=== PATIENT | female | born 1945 | race Caucasian/White ===

== ENCOUNTER → 2017-12-10 | Outpatient (REF) ==
[~2017-12-10] MED LIST: AMARYL 2MG T2 MG/TAB PO; AMARYL4 MG PO; ASPIRIN 32325 MG/TAB PO; ASPIRIN E.C. 8181 MG PO; BLOOD PRESSURE MED; CALCIUM CARBONATE; CATAPRES 0.1MG0.1 MG PO; HALLS COUGH DROPS; LEVOXYL0.05 MG PO; NO HOME MEDICATIONS; [UNRECOGNIZED DRUG - REMARK]
== END ==
LOC: ZLAB.WCH 16:07
DX: Z01.89 Encounter for other specified special examinations (principal)

== ENCOUNTER 2018-02-14 19:27 | Emergency (ER) | payer MEDICARE, BC ==
[~2018-02-14] VITALS: Ht 162.6 cm; Wt 110.9 kg
[2018-02-14 19:36] VITALS: TEMP 98.4
[2018-02-14] MEDS ORDERED: LOSARTAN/HCT TAB 50- (20:36)
[2018-02-14 22:22] LABS: BASO # 0.1 (0.0-0.2); BASO % 0.8 % (0.0-2.0); EOS # 0.3 (0.0-0.7); EOS % 2.5 % (0-4.0); GRAN # 7.9 (1.4-6.5); HEMATOCRIT 40.3 % (37.0-47.0); HEMOGLOBIN 13.8 g/dl (12.5-16.0); LYMPH # 1.4 (1.2-3.4); LYMPH % 13.4 % (20.0-51.0); MEAN CELL VOLUME 89 fl (80.0-100.0); MEAN CORPUSCULAR HEMOGLOBIN 31 pg (27.0-31.0); MEAN CORPUSCULAR HGB CONC 34 g/dl (33.0-37.0); MEAN PLATELET VOLUME 9.9 fl (7.4-10.4); MONO # 0.4 (0.1-0.6); MONO % 4.1 % (1.7-9.3); PLATELET COUNT 228 K/mm3 (130-400); RED BLOOD COUNT 4.51 M/mm3 (4.10-5.30); REDCELL DISTRIBUTION WIDTH-CV 13.5 % (11.5-14.5)
[2018-02-14 22:33] LABS: ALBUMIN 3.8 gm/dL (3.5-5.0); CALCIUM 9.4 mg/dL (8.4-10.2); CREATININE, serum 0.9 mg/dL (0.52-1.25); POTASSIUM 3.9 mmol/L (3.4-5.0); TOTAL PROTEIN 7.4 gm/dL (6.4-8.2)
[2018-02-14 23:27] VITALS: BP 144/93; PULSE 95
== END 2018-02-14 23:28 | disposition home or self-care (01) ==
LOC: COL.ER 19:27
PROVIDERS: Emergency Medicine
DX: R19.7 Diarrhea, unspecified (principal); I10 Essential (primary) hypertension; E11.9 Type 2 diabetes mellitus without complications; Z90.710 Acquired absence of both cervix and uterus; Z90.89 Acquired absence of other organs; Z98.890 Other specified postprocedural states; Z79.82 Long term (current) use of aspirin; Z79.84 Long term (current) use of oral hypoglycemic drugs

== ENCOUNTER → 2018-03-08 | Outpatient (REF) ==
[~2018-03-08] MED LIST changes: +LOSARTAN/HCT TAB 50-
== END ==
LOC: ZLAB.WCH 15:50
DX: Z01.89 Encounter for other specified special examinations (principal)

== ENCOUNTER → 2019-08-29 | Outpatient (CLI) | payer MEDICARE, BC | LOC: COL.RAD 14:22 | DX: S46.911A Strain of unspecified muscle, fascia and tendon at shoulder and upper arm level, right arm, initial encounter (principal); M25.411 Effusion, right shoulder; M19.011 Primary osteoarthritis, right shoulder ==

== ENCOUNTER 2023-05-24 10:23 | Inpatient (IN) | payer MEDICARE, BC ==
[~2023-05-24] VITALS: Ht 160 cm; Wt 92.6 kg
[~2023-05-24 10:23] MED LIST changes: -ASPIRIN 32325 MG/TAB PO; +ASPIRIN 81M81 MG/TA2 PO; +COZAAR100 MG PO; +DEX PO; +FREESTYLE PREC1 EAC5 MC; +GLUCOSE TEST ST1 DEV MC; -LEVOXYL0.05 MG PO; +SYNTHROID0.075 MG/T PO
[2023-05-24 11:10] LABS: BASO # 0.1 K/mm3 (0.0-0.2); BASO % 0.4 % (0.0-2.0); EOS # 0.1 K/mm3 (0.0-0.7); EOS % 0.7 % (0.0-4.0); GRAN # 13.4 K/mm3 (1.4-6.5); GRAN % 84.9 % (42.2-75.2); HEMOGLOBIN 11.2 g/dl (12.5-16.0); LYMPH # 1.1 K/mm3 (1.2-3.4); LYMPH % 7.1 % (20.0-51.0); MEAN CELL VOLUME 96 fl (80.0-100.0); MEAN CORPUSCULAR HEMOGLOBIN 32 pg (27-31); MEAN CORPUSCULAR HGB CONC 33 g/dl (33.0-37.0); MEAN PLATELET VOLUME 10.1 fl (7.4-10.4); MONO % 6.4 % (1.7-9.3); PLATELET COUNT 268 K/mm3 (130-400); RED BLOOD COUNT 3.54 M/mm3 (4.10-5.30); REDCELL DISTRIBUTION WIDTH-CV 15.9 % (11.5-14.5)
[2023-05-24 11:11] LABS: HEMATOCRIT 33.8 % (37.0-47.0)
[2023-05-24 11:20] LABS: ALANINE AMINOTRANSFERASE 10 U/L (0-55); ALBUMIN 3.4 gm/dL (3.4-4.8); ALKALINE PHOSPHATASE 77 U/L (40-150); ANION GAP 13 mmol/L (7-16); AST,SGOT 9 U/L (5-34); BILIRUBIN,TOTAL 2.1 mg/dL (0.2-1.2); BLOOD UREA NITROGEN 28 mg/dL (10-20); CALCIUM 9.7 mg/dL (8.4-10.2); CARBON DIOXIDE 23 mmol/L (23-31); CHLORIDE 98 mmol/L (98-107); CREATININE, serum 1.88 mg/dL (0.57-1.11); GLUCOSE 190 mg/dL (70-99); POTASSIUM 3.3 mmol/L (3.5-4.5); SODIUM 134 mmol/L (136-145); TOTAL PROTEIN 7.1 gm/dL (6.2-8.1)
[2023-05-24 11:37] LABS: COLLECTION METHOD CLEAN CATCH
[2023-05-24 11:55] LABS: TROPONIN-I < 0.010 ng/mL (0.00-0.033)
[2023-05-24 11:57] LABS: MUCOUS Present (NOT PRESENT); SQUAMOUS EPITHELIAL 0-2 /hpf (0-10); URINE BACTERIA None Seen /hpf (NONE SEEN); URINE RBC 0-2 /hpf (0-2)
[2023-05-24 12:01] LABS: URINE APPEARANCE Hazy (CLEAR/HAZY); URINE COLOR Amber (YELLOW); URINE GLUCOSE Negative (NEGATIVE); URINE KETONE 1+ (NEGATIVE); URINE PROTEIN(semi-quant) 1+ (NEGATIVE)
[2023-05-24 12:02] LABS: URINE BLOOD Negative (NEGATIVE); URINE NITRATE Positive (NEGATIVE)
[2023-05-24] MEDS ORDERED: NORVASC 5MG5 MG/TAB PO (13:55)
[2023-05-24] MEDS ORDERED: PLAVIX 75MG TAB75 MG PO (13:56)
[2023-05-24] MEDS ORDERED: VITAMIN D 50,1.25 MG PO (13:57)
[2023-05-24] MEDS ORDERED: LIPITOR 80MG80 MG PO (13:59)
[2023-05-24 14:36] VITALS: BP 139/52; PULSE 82; TEMP 98.3
--- NOTE | 2023-05-24 15:57 | NUR ---
PT ON THE FLOOR APPROX 1500. PT REPORTS A FALL THIS AM AND THAT A CONCERNED NEIGHBOR CALLED EMS, PT UNABLE TO RECALL WHY SHE FELL. PT DENIES PAIN BUT HAS SOME REDNESS TO BILATERAL KNEES. PT A&OX4, LUNGS CTA AND ORIENTED TO ROOM. PT SPEECH IS SLOWED WITH SOME CONFUSED RESPONSES BUT NOT SLURRED, HAND INVENTORY TECHNICIAN AND EXTREMITY STRENGTH EQUAL. PT AMBULATES WITH WALKER SBA/1X. PT DENIES NEEDS AT THIS TIME, FLUIDS RUNNING PER ORDER, BED IN LOWEST POSITION, BED ALARM ON, CALL LIGHT IN REACH
--- NOTE | 2023-05-24 16:25 | NUR ---
REPORT GIVEN TO JAZLYN RIVAS
[2023-05-24 17:30] VITALS: BP_SYST 139
[2023-05-24 19:21] VITALS: BP 129/52; PULSE 78; TEMP 98
--- NOTE | 2023-05-24 19:21 | NUR ---
Report given to night RN.
[2023-05-24 22:54] VITALS: BP_SYST 129
[2023-05-24 23:23] VITALS: BP 103/43; PULSE 71; TEMP 98.7
[2023-05-25] VITALS (13 sets, daily range): BP systolic 103–147; BP diastolic 53–75; PULSE 60–71; TEMP 97.7–98.7
--- NOTE | 2023-05-25 00:51 | NUR ---
PATIENT LYING IN BED, ALERT AND ORIENTED X2. PT REORIENTED TO PLACE. PATIENT DENIES CHEST PAIN AND SHORTNESS OF BREATH AT THIS TIME. IV IN THE LEFT AC WAS PULLED OUT, MISTY DEANHOG DRIVER PLACED 22G IV IN LF. PT TRANSFERED TO CHAIR WITH 1 ASSIST AND WALKER, STEADY GAIT NOTED, DURING TRANSFER FROM CHAIR BACK TO BED, PT HAS SLIGHT WEAKNESS IN THE RIGHT LOWER EXTREMITY WITH A MOMENTARY STUMBLE BACK INTO SITTING ON THE CHAIR. PT TRANSFER FROM BED TO BEDSIDE COMMODE WITH 2 ASSIST AND WALKER, STEADY GAIT AT THIS TIME. REDNESS ON BILATERAL KNEES NOTED ALONG WITH SCATTERED GENERAL SCABBING AND SMALL BRUISING ALONG ALL EXTREMITIES AND SOME SCABBING NOTED ON THE BACK WELL. PT HAS NOR FURTHER NEEDS, QUESTIONS, OR CONCERNS AT THIS TIME. CALL LIGHT WITHIN REACH, WILL CONTINUE TO MONITOR.
--- NOTE | 2023-05-25 04:20 | NUR ---
PATIENT PULLED OUT NEWLY PLACE LF IV, IV TEAM TO PLACE IV IN [place], PATENT, CLEAN CRY AND INTACT. PT EDUCATED AND REMINDED ABOUT USING CALL LIGHT WHEN NEEDING TO USE THE BATHROOM OR TRYING TO GET UP, PATIENT VERBALIZED UNDERSTANDING. ALERT AND ORIENTED X3.
[2023-05-25 05:46] LABS: BASO # 0.1 K/mm3 (0.0-0.2); BASO % 0.6 % (0.0-2.0); EOS # 0.2 K/mm3 (0.0-0.7); EOS % 2.1 % (0.0-4.0); GRAN # 7.9 K/mm3 (1.4-6.5); LYMPH # 0.9 K/mm3 (1.2-3.4); LYMPH % 9.2 % (20.0-51.0); MEAN CELL VOLUME 95 fl (80.0-100.0); MEAN CORPUSCULAR HEMOGLOBIN 32 pg (27-31); MEAN CORPUSCULAR HGB CONC 34 g/dl (33.0-37.0); MONO # 0.7 K/mm3 (0.1-0.6); MONO % 6.7 % (1.7-9.3); PLATELET COUNT 188 K/mm3 (130-400); RED BLOOD COUNT 3.75 M/mm3 (4.10-5.30); REDCELL DISTRIBUTION WIDTH-CV 15.8 % (11.5-14.5)
[2023-05-25 05:53] LABS: HEMATOCRIT 35.7 % (37.0-47.0)
[2023-05-25 06:04] LABS: CALCIUM 8.6 mg/dL (8.4-10.2); CREATININE, serum 1.07 mg/dL (0.57-1.11); MAGNESIUM 1.9 mg/dL (1.6-2.6); POTASSIUM 3.4 mmol/L (3.5-4.5)
[2023-05-25 06:26] LABS: TSH w REFLEX 2.117 uIU/mL (0.350-4.940)
--- NOTE | 2023-05-25 08:30 | NUR ---
PT RESTING IN BED UPON ENTERING, RISE AND FALL OF CHEST NOTED. JALZYN BLAKE REPORTED AN EPISODE OF CONFUSION THIS AM WHILE TRANSFERRED PT FROM BATHROOM. JAZLYN BLAKE REPORTED THAT PT STOOD HOLDING RAILING WITH HEAD AGAINST WALL FOR A FEW SECONDS THEN STOOD WITH A "BLANK STARE", HOSPITALIST NOTIFIED AND MRIS ORDERED. FLUIDS RUNNING PER ORDER, PT DENIES PAIN OR DISCOMFORT AT THIS TIME. PT A&OX4 WITH SOME CONFUSED SPEECH DURING ASSESSMENT. MODIFIED NIH ASSESSMENT DONE AT BEDSIDE STRENGTH IN ALL EXTREMITIES WITHIN NORMAL LIMITS. PT TRANSFERRED TO CHAIR FOR BREAKFAST WITHOUT DIFFICULTY, GAIT STEADY. PT DENIES NEEDS AT THIS TIME. CHAIR ALARM ON, CALL LIGHT IN REACH.
--- NOTE | 2023-05-25 15:02 | NUR ---
track service worker met with patient to discuss discharge planning. Patient expressed she lives in [place] with her , Damir. Patient expressed her primary care physician is Dr. Orlando. Patient expressed she uses "[facility]" as her pharmacy, director social requested clarification and patient expressed she meant "[facility]". Patient expressed she has a cane, walker and wheelchair at home. Patient expressed it would be best to confirm information with her son, Darci, P# [phone], whom she believes is her DPOA-HC. track service worker contacted son, Darci, to confirm information. Darci expressed patient's primary care physician is Dr. Orlando and she gets her medications from [facility]. Darci expressed he is now living with her after his father/her last month. Darci expressed they started the process of a DPOA-HC with an litigation attorney associate but they had not officially signed it. track service worker expressed OT/PT are currently recommending possible home health services and explained what the services are. Darci expressed he works from home and moved in with her so she is being cared for at all times and is not certain if patient would be interested in home health. ST notified the director social that patient may benefit from more post-acute care after she completed her evaluations but if the family was not accepting of those services she would need 24/7 care. Social work requested doctor/PA contact son with updates on patient's medical diagnosis. Social work will continue to follow. Discharge Plan: Home with possible HH, possible post-acute care needed
--- NOTE | 2023-05-25 16:52 | NUR ---
PT IN CT
--- NOTE | 2023-05-25 18:23 | NUR ---
PT RESTING IN BED UPON ENTERING. PT DENIES PAIN AT THIS TIME AND HAS A NEW 20G IN RIGHT UPPER ARM PLACE BY AUTOMOTIVE FUEL INJECTION SERVICER. LOOP RECORDER WAS PLACED EARLIER THIS AFTERNOON AND DRESSING IS CLEAN DRY AND INTACT, VSS SINCE PROCEDURE. PT DENIES NEEDS AT THIS TIME. CALL LIGHT IN REACH, BED ALARM ON, BED IN LOWEST POSITION
--- NOTE | 2023-05-25 18:56 | NUR ---
REPORT GIVEN TO JAZLYN TORREZ
--- NOTE | 2023-05-25 20:00 | NUR ---
Initial shift assessment done- states overall is feeling better just feels weak, alert/oriented x4 at this time, Tele on- SR, loop recorder dressing dry and intact, no reuqests at this time, did sit at edge of bed for a few minutes- back to bed, fall precautions in place.
[2023-05-26] VITALS (11 sets, daily range): BP systolic 112–179; BP diastolic 52–86; PULSE 58–66; TEMP 97.3–98.9
--- NOTE | 2023-05-26 05:28 | NUR ---
No changes, pt remains alert/oriented x4 , did sleep fair last night, Up to bathroom with just standby assist 4-5 times last night, Tele on SR
[2023-05-26 06:30] LABS: BASO % 0.5 % (0.0-2.0); EOS % 0.2 % (0.0-4.0); GRAN # 7.9 K/mm3 (1.4-6.5); GRAN % 89.5 % (42.2-75.2); HEMOGLOBIN 11.3 g/dl (12.5-16.0); LYMPH # 0.5 K/mm3 (1.2-3.4); LYMPH % 5.5 % (20.0-51.0); MEAN CELL VOLUME 94 fl (80.0-100.0); MEAN CORPUSCULAR HEMOGLOBIN 32 pg (27-31); MEAN CORPUSCULAR HGB CONC 34 g/dl (33.0-37.0); MEAN PLATELET VOLUME 10.2 fl (7.4-10.4); MONO # 0.4 K/mm3 (0.1-0.6); PLATELET COUNT 240 K/mm3 (130-400); RED BLOOD COUNT 3.51 M/mm3 (4.10-5.30); REDCELL DISTRIBUTION WIDTH-CV 15.6 % (11.5-14.5)
[2023-05-26 06:32] LABS: HEMATOCRIT 33.1 % (37.0-47.0)
[2023-05-26 06:47] LABS: CREATININE, serum 0.81 mg/dL (0.57-1.11); POTASSIUM 3.3 mmol/L (3.5-4.5)
--- NOTE | 2023-05-26 11:16 | NUR ---
Exercise Specialist rounds: Patient seated in recliner. Accepted Exercise Specialist visit. Patient stated her Son is on his way here from [place] to help her. She believes he should arrived sometime today. Patient spoke with Exercise Specialist about her grandson and granddaugter. Exercise Specialist prayed for healing for Patient, safe travels for her Son, and for the careers of her grandchildren.
--- NOTE | 2023-05-26 16:00 | NUR ---
PATIENT AWAKE AND ALERT, SITTING UP IN RECLINER. PATIENT DENEIS ANY NEEDS OR COMPLAINTS AT THIS TIME. HER FRIEND IS IN ROOM. PATIENTS CALL LIGHT WITHIN REACH. FALL PRECAUTIONS IN PLACE.
--- NOTE | 2023-05-26 20:15 | NUR ---
Initial shift assessment done- denies pain, states feels good tonight- no requests, neuros intact, alert/oriented, was sitting up in the chair, now back to bed for the night- dressing to loop recorder site dry and inatc, tele on SR 64/min. Bed alarm on- Fall risk precautions
[2023-05-27 00:06] VITALS: BP_SYST 179
--- NOTE | 2023-05-27 02:33 | NUR ---
Up to bathroom with walker, standby assist- voiding without problems-
[2023-05-27 03:05] VITALS: BP 148/70; PULSE 110; TEMP 97.8
[2023-05-27 04:08] VITALS: BP_SYST 148
--- NOTE | 2023-05-27 06:24 | NUR ---
Quiet night- Slept very well, no requests, neuros intact- no changes
[2023-05-27 08:30] VITALS: BP_SYST 124
--- NOTE | 2023-05-27 08:30 | NUR ---
PT AWAKE IN CHAIR UPON ENTERING. PT DENIES PAIN AND STATES "WHEN AM I GETTING OUT OF HERE". PT A&OX4 AND DENIES NEEDS AT THIS TIME. CALL LIGHT IN REACH
[2023-05-27 08:47] VITALS: BP 124/63; PULSE 73; TEMP 97.8
[2023-05-27] MEDS ORDERED: CEPHALEXIN500 M1 PO (10:00)
[2023-05-27] MEDS ORDERED: ELIQUIS 5MG PO (10:02)
--- NOTE | 2023-05-27 10:29 | NUR ---
SW met with pt to get HH choice. Family denied services and reports they want to take care of it outside of the hospital. SW informed team.
--- NOTE | 2023-05-27 11:36 | NUR ---
IV AND TELEMETRY DISCONTINUED, PT DRESSED IN PERSONAL CLOTHES. PT WANTS TO WAIT UNTIL SONS ARE AT BEDSIDE TO GIVE DISCHARGE INSTRUCTIONS. PT IN CHAIR AND DENIES NEEDS, CALL LIGHT IN REACH
--- NOTE | 2023-05-27 12:52 | NUR ---
DISHCARGE INSTRUCTIONS GIVEN TO SONS AND PT, BOTH VERBALIZED UNDERSTANDING. ALL QUESTIONS ANSWERED. ESCORTED TO PERSONAL VEHICLE VIA WHEELCHAIR BY STAFF
== END 2023-05-27 12:53 | disposition home or self-care (01) | DRG 40 ==
LOC: COL.ER 10:23 → MEDICAL 13:08 → SURG 05-26 17:27
PROVIDERS: Emergency Medicine; Physician Assistant; ADMIT Internal Medicine
PROC: 0JH632Z Insertion of Monitoring Device into Chest Subcutaneous Tissue and Fascia, Percutaneous Approach (ICD-10-PCS; principal; 2023-05-25)
DX: I63.431 Cerebral infarction due to embolism of right posterior cerebral artery (principal); G93.41 Metabolic encephalopathy; N17.9 Acute kidney failure, unspecified; N39.0 Urinary tract infection, site not specified; E11.9 Type 2 diabetes mellitus without complications; I10 Essential (primary) hypertension; E78.5 Hyperlipidemia, unspecified; E03.9 Hypothyroidism, unspecified; E87.6 Hypokalemia; Z66 Do not resuscitate; R47.81 Slurred speech; I65.01 Occlusion and stenosis of right vertebral artery; I65.1 Occlusion and stenosis of basilar artery; R29.701 NIHSS score 1; Z79.82 Long term (current) use of aspirin; Z79.899 Other long term (current) drug therapy; Z90.710 Acquired absence of both cervix and uterus; Z90.89 Acquired absence of other organs; Z91.040 Latex allergy status; Z87.891 Personal history of nicotine dependence; Z79.890 Hormone replacement therapy
CPT/HCPCS: A9575; C1764; J0696; J1644; J1815; J7030; Q3014; Q9967